=== PATIENT | female | born 1970 | race Caucasian/White ===

== ENCOUNTER → 2024-06-08 08:39 | Outpatient (REF) | payer OTHER, SELFPAY | LOC: WDC 08:39 | PROVIDERS: ATTENDING PHYSICIAN Family Medicine | DX: N63.10 Unspecified lump in the right breast, unspecified quadrant (principal); N63.14 Unspecified lump in the right breast, lower inner quadrant | CPT/HCPCS: 76642; 77062; 77066 ==

== ENCOUNTER 2024-06-29 17:55 | Outpatient (RCR) | payer OTHER, SELFPAY | END 2024-06-29 23:59 | disposition home or self-care (01) | LOC: RPT 17:55 | PROVIDERS: ATTENDING PHYSICIAN Student in an Organized Health Care Education/Training Program; FAMILY PHYSICIAN Family Medicine | DX: M54.16 Radiculopathy, lumbar region (principal); M51.26 Other intervertebral disc displacement, lumbar region; M25.551 Pain in right hip; R10.2 Pelvic and perineal pain; Z73.6 Limitation of activities due to disability | CPT/HCPCS: 97163 ==

== ENCOUNTER → 2024-07-29 10:01 | Outpatient (REF) | payer OTHER, SELFPAY | LOC: RAD 10:01 | PROVIDERS: ATTENDING PHYSICIAN Surgery; FAMILY PHYSICIAN Family Medicine | DX: M85.80 Other specified disorders of bone density and structure, unspecified site (principal); C53.9 Malignant neoplasm of cervix uteri, unspecified | CPT/HCPCS: 77080 ==

== ENCOUNTER 2024-07-29 15:49 | Outpatient (RCR) | payer OTHER, SELFPAY | END 2024-07-29 23:59 | disposition home or self-care (01) | LOC: RPT 15:49 | PROVIDERS: ATTENDING PHYSICIAN Student in an Organized Health Care Education/Training Program; FAMILY PHYSICIAN Family Medicine | DX: M54.16 Radiculopathy, lumbar region (principal); M51.26 Other intervertebral disc displacement, lumbar region; M25.551 Pain in right hip; R10.2 Pelvic and perineal pain; Z73.6 Limitation of activities due to disability | CPT/HCPCS: 97110; 97164; 97530 ==

== ENCOUNTER → 2024-08-11 17:10 | Outpatient (REF) | payer OTHER, SELFPAY | LOC: PAVMRI 17:10 | PROVIDERS: ATTENDING PHYSICIAN Student in an Organized Health Care Education/Training Program; FAMILY PHYSICIAN Family Medicine | DX: M51.26 Other intervertebral disc displacement, lumbar region (principal); M25.551 Pain in right hip; M54.16 Radiculopathy, lumbar region | CPT/HCPCS: 72148 ==

== ENCOUNTER → 2024-08-12 16:49 | Outpatient (REF) | payer OTHER, SELFPAY | LOC: PAVMRI 16:49 | PROVIDERS: ATTENDING PHYSICIAN Physical Medicine & Rehabilitation Sports Medicine; FAMILY PHYSICIAN Family Medicine | DX: M25.551 Pain in right hip (principal); M24.851 Other specific joint derangements of right hip, not elsewhere classified | CPT/HCPCS: 73721 ==

== ENCOUNTER 2024-08-20 13:59 | Outpatient (RCR) | payer OTHER, SELFPAY | END 2024-08-20 23:59 | disposition home or self-care (01) | LOC: RPT 13:59 | PROVIDERS: ATTENDING PHYSICIAN Student in an Organized Health Care Education/Training Program; FAMILY PHYSICIAN Family Medicine | DX: M54.16 Radiculopathy, lumbar region (principal); M51.26 Other intervertebral disc displacement, lumbar region; M25.551 Pain in right hip; R10.2 Pelvic and perineal pain; Z73.6 Limitation of activities due to disability | CPT/HCPCS: 97140; 97530 ==

== ENCOUNTER 2024-09-21 09:56 | Outpatient (RCR) | payer OTHER, SELFPAY | END 2024-09-21 23:59 | disposition home or self-care (01) | LOC: RPT 09:56 | PROVIDERS: ATTENDING PHYSICIAN Student in an Organized Health Care Education/Training Program; FAMILY PHYSICIAN Family Medicine | DX: M54.16 Radiculopathy, lumbar region (principal); M51.26 Other intervertebral disc displacement, lumbar region; M25.551 Pain in right hip; R10.2 Pelvic and perineal pain; Z73.6 Limitation of activities due to disability | CPT/HCPCS: 97014; 97112; 97140; 97530 ==

== ENCOUNTER → 2024-09-21 19:12 | Outpatient (REF) | payer OTHER, SELFPAY | LOC: MRI 3T 19:12 | PROVIDERS: ATTENDING PHYSICIAN Physician Assistant Surgical; FAMILY PHYSICIAN Family Medicine | DX: M54.2 Cervicalgia (principal); M50.10 Cervical disc disorder with radiculopathy, unspecified cervical region; M54.12 Radiculopathy, cervical region | CPT/HCPCS: 72141 ==

== ENCOUNTER → 2025-01-19 06:36 | Outpatient (REF) | payer OTHER, SELFPAY | LOC: MRI 06:36 | PROVIDERS: ATTENDING PHYSICIAN Physical Medicine & Rehabilitation Sports Medicine | DX: M84.451A Pathological fracture, right femur, initial encounter for fracture (principal) | CPT/HCPCS: 73721 ==

== ENCOUNTER 2025-01-26 14:51 | Outpatient (RCR) | payer OTHER, SELFPAY | END 2025-01-26 23:59 | disposition home or self-care (01) | LOC: RPT 14:51 | PROVIDERS: ATTENDING PHYSICIAN Physician Assistant Medical; FAMILY PHYSICIAN Family Medicine | DX: Z47.89 Encounter for other orthopedic aftercare (principal); M48.02 Spinal stenosis, cervical region; Z73.6 Limitation of activities due to disability; R47.89 Other speech disturbances; R26.89 Other abnormalities of gait and mobility; Z98.1 Arthrodesis status | CPT/HCPCS: 97010; 97110; 97140; 97162 ==

== ENCOUNTER 2025-01-28 09:09 | Outpatient (RCR) | payer OTHER, SELFPAY | END 2025-01-28 23:59 | disposition home or self-care (01) | LOC: RST 09:09 | PROVIDERS: ATTENDING PHYSICIAN Otolaryngology; FAMILY PHYSICIAN Family Medicine | DX: J38.01 Paralysis of vocal cords and larynx, unilateral (principal); R49.0 Dysphonia; Z98.890 Other specified postprocedural states | CPT/HCPCS: 92507; 92524 ==

== ENCOUNTER → 2025-01-29 08:36 | Outpatient (REF) | payer OTHER, SELFPAY | LOC: RST 08:36 | PROVIDERS: ATTENDING PHYSICIAN Otolaryngology; FAMILY PHYSICIAN Family Medicine | DX: J38.01 Paralysis of vocal cords and larynx, unilateral (principal) | CPT/HCPCS: 74230; 92611 ==

== ENCOUNTER 2025-02-01 10:55 | Outpatient (RCR) | payer OTHER, SELFPAY | END 2025-02-01 23:59 | disposition home or self-care (01) | LOC: RST 10:55 | PROVIDERS: ATTENDING PHYSICIAN Otolaryngology; FAMILY PHYSICIAN Family Medicine | DX: J38.01 Paralysis of vocal cords and larynx, unilateral (principal); R13.14 Dysphagia, pharyngoesophageal phase; R49.0 Dysphonia; Z98.890 Other specified postprocedural states; R68.89 Other general symptoms and signs | CPT/HCPCS: 92507 ==

== ENCOUNTER → 2025-02-11 06:47 | Outpatient (REF) | payer OTHER, SELFPAY | LOC: RAD 06:47 | PROVIDERS: ATTENDING PHYSICIAN Physical Medicine & Rehabilitation Sports Medicine; FAMILY PHYSICIAN Family Medicine | DX: M79.661 Pain in right lower leg (principal); M25.561 Pain in right knee | CPT/HCPCS: 93971 ==

== ENCOUNTER 2025-03-01 16:18 | Outpatient (RCR) | payer OTHER, SELFPAY | END 2025-03-01 23:59 | disposition home or self-care (01) | LOC: RPT 16:18 | PROVIDERS: ATTENDING PHYSICIAN Physician Assistant Medical; FAMILY PHYSICIAN Family Medicine | DX: Z47.89 Encounter for other orthopedic aftercare (principal); M48.02 Spinal stenosis, cervical region; Z73.6 Limitation of activities due to disability; R47.89 Other speech disturbances; Z98.1 Arthrodesis status; R26.89 Other abnormalities of gait and mobility | CPT/HCPCS: 97010; 97110 ==

== ENCOUNTER 2025-03-11 15:30 | Outpatient (RCR) | payer BC, SELFPAY | END 2025-03-11 23:59 | disposition home or self-care (01) | LOC: RPT 15:30 | PROVIDERS: ATTENDING PHYSICIAN Physician Assistant Medical; FAMILY PHYSICIAN Family Medicine | DX: Z47.89 Encounter for other orthopedic aftercare (principal); M48.02 Spinal stenosis, cervical region; Z73.6 Limitation of activities due to disability; Z98.1 Arthrodesis status; R47.89 Other speech disturbances; R26.89 Other abnormalities of gait and mobility | CPT/HCPCS: 97110 ==